=== PATIENT | male | born 1965 | race Native Hawaiian/Other Pacific Islander ===

== ENCOUNTER 2016-11-06 10:20 | Emergency (ER) | payer SELFPAY ==
[2016-11-06 10:22] VITALS: BMI 22.3
[2016-11-06] MEDS ORDERED: Sodium Chloride 0.9% 1,000 ML IV ONE ×3 (10:22→13:58)
[2016-11-06] MEDS ORDERED: Sodium Chloride 0.9% 1,000 ML ONE ×2 (11:24→12:39)
[2016-11-06 11:28] LABS: VENOUS BLOOD GAS BASE EXCESS -3.1 mmol/L (0.0-2.0); VENOUS BLOOD GAS PCO2 35 mmHg (40-60); VENOUS BLOOD PH 7.39 (7.32-7.43)
[2016-11-06 11:34] LABS: BASO # 0.1 K/uL (0.0-0.2); BASO % 0.7 % (0.0-2.0); EOS % 0.3 % (0.0-4.0); HEMATOCRIT 40.2 % (35.0-51.0); LYMPH # 0.5 K/uL (1.0-4.3); LYMPH % 4.5 % (20.0-40.0); MEAN CELL VOLUME 98.2 fL (80.0-94.0); MEAN CORPUSCULAR HEMOGLOBIN 33.4 pg (27.0-31.0); MEAN PLATELET VOLUME 8.9 fL (7.2-11.7); MONO % 8.4 % (0.0-10.0); PLATELET COUNT 239 K/uL (130-400); WHITE BLOOD COUNT 11.7 K/uL (4.8-10.8)
[2016-11-06 11:45] LABS: CHLORIDE 102 mmol/L (98-107); POTASSIUM 3.7 mmol/L (3.6-5.2); SODIUM 140 mmol/L (132-148)
[2016-11-06 11:47] LABS: ALB/GLOB RATIO 1.4 (1.0-2.1); AST/SGOT 22 U/L (17-59); CARBON DIOXIDE 20 mmol/L (22-30); GFR AFRICAN-AMERICAN > 60; TOTAL PROTEIN 7.8 g/dL (6.3-8.3)
[2016-11-06 11:48] LABS: ALCOHOL SERUM < 10 mg/dl (0-10); ALKALINE PHOSPHATASE 61 U/L (38-126); ALT/SGPT 20 U/L (21-72); BLOOD UREA NITROGEN 15 mg/dL (9-20); CALCIUM 9.4 mg/dl (8.6-10.4); GLUCOSE,RANDOM 147 mg/dL (75-110)
[2016-11-06 12:14] LABS: RBC URINE 1 /hpf (0-3); URINE BILIRUBIN NEGATIVE (NEGATIVE); URINE BLOOD NEGATIVE (NEGATIVE); URINE COLOR Yellow (YELLOW); URINE GLUCOSE (UA) NORMAL (Normal); URINE KETONE 1+ mg/dL (NEGATIVE); URINE LEUKOCYTE ESTERASE NEG Leu/uL (Negative); URINE PROTEIN 2+ mg/dL (NEGATIVE); URINE UROBILINOGEN NORMAL mg/dL (0.2-1.0); WBC URINE 2 /hpf (0-5)
[2016-11-06 12:21] LABS: NEUTROPHIL 87 % (50-75); TOTAL CELLS COUNTED 100
--- NOTE | 2016-11-06 12:47 | RAD ---
PROCEDURE: CHEST RADIOGRAPH, 1 VIEW. Portable study 11:05 HISTORY: Detox/Psy COMPARISON: None available. FINDINGS: LUNGS: Clear. PLEURA: No pneumothorax or pleural fluid seen. CARDIOVASCULAR: Normal. OSSEOUS STRUCTURES: No significant abnormalities. VISUALIZED UPPER ABDOMEN: Normal. OTHER FINDINGS: None. IMPRESSION: No active disease. No preliminary report provided by emergency department personnel.
--- NOTE | 2016-11-06 13:45 | C.PDOC ---
History Of Present Illness 51 yr old male brought in via BLS and [employer] in cuffs, brought in for being found in the street with questionable puncture wound or needle in his arm. EMS states the patient evaded them and was running through [place] and jumping over fences and was eventually caught by [employer]. In ED, patient story is unclear, states his then changed it stating she left. Patient is agitated in ED and minimally verbally abusive. ROS is unable to be obtained due to AMS. Time Seen by Provider: 11/06/16 10:22 Chief Complaint (Nursing): Substance Abuse History Per: Patient, EMS, Other ([employer]) History/Exam Limitations: intoxication Onset/Duration Of Symptoms: Days Past Medical History Reviewed: Historical Data, Nursing Documentation, Vital Signs Vital Signs: Last Vital Signs Temp 98.7 F 11/06/16 16:13 Pulse 77 11/06/16 16:13 Resp 18 11/06/16 16:13 BP 125/70 11/06/16 16:13 Pulse Ox 98 11/06/16 16:13 Family History: States: No Known Family Hx - Social History Hx Alcohol Use: No Hx Substance Use: Yes - Immunization History Hx Tetanus Toxoid Vaccination: No Hx Influenza Vaccination: No Hx Pneumococcal Vaccination: No Review Of Systems Review Of Systems: ROS cannot be obtained secondary to pt's inabilty to answer questions. Neurological: Positive for: Altered Mental Status Physical Exam - Physical Exam Appears: Non-toxic, No Acute Distress, Other (No signs of trauma. ) Skin: Warm, Dry, No Rash, Other ((+) Hot. Dry to touch. ) Head: Atraumatic, Normacephalic Oral Mucosa: Moist Chest: Symmetrical, No Tenderness Cardiovascular: Rhythm Regular, No Murmur Respiratory: Normal Breath Sounds, No Rales, No Rhonchi, No Stridor, No Wheezing Gastrointestinal/Abdominal: Normal Exam, Soft, No Tenderness, No Guarding, No Rebound Extremity: Normal ROM, No Swelling Neurological/Psych: Normal Speech, Normal Motor ED Course And Treatment - Laboratory Results Result Diagrams: 11/06/16 11:28 11/06/16 11:28 O2 Sat by Pulse Oximetry: 95 (RA) Pulse Ox Interpretation: Normal - Radiology CXR: Viewed By Me, Read By Radiologist CXR Interpretation: Yes: No Acute Disease Medical Decision Making Medical Decision Making: PLAN: * CXR * EKG * VBG * CBC * CMP * Alcohol Serum * Drug Screen * Acetaminophen * Urinalysis * Ativan IVP * Sodium Chloride IV Patient initially sweaty, hot, dry upon arrival. Lactic Acid was 6. IV fluids given, patient slept , repeat lactic Acid normal, Other labs wnl, Positive for cocaine. Spoke with patient via translation services, denies SI/HI, states he knows how to get home from [facility]. Patient rude and verbally lewd. Patient will be discharged at this time. Disposition Counseled Patient/Family Regarding: Studies Performed, Need For Followup - Disposition Referrals: [facility] [Outside] Disposition: HOME/ ROUTINE Disposition Time: 18:28 Condition: IMPROVED Instructions: Cocaine Abuse (ED) Forms: General Discharge Instructions - POA Present On Arrival: None - Clinical Impression Clinical Impression: Drug abuse
[2016-11-06 14:52] LABS: VENOUS BLOOD GAS PCO2 51 mmHg (40-60)
[2016-11-06 16:14] VITALS: TEMP 98.7
[2016-11-06 19:30] VITALS: BP 134/67; PULSE 74; RESP 19; O2SAT 98
--- NOTE | 2016-11-07 20:57 | CARD ---
APPROVED REPORT EKG Measurement Heart [id number] <Conclusion> Sinus tachycardia Moderate voltage criteria for LVH, may be normal variant Prolonged QT Abnormal ECG
== END 2016-11-06 19:35 | disposition home or self-care (01) ==
LOC: C.ER 10:20 → EDBD 10:20 → C.ER 19:35
DX: F14.10 Cocaine abuse, uncomplicated (principal)
CPT/HCPCS: 71010; 80053; 81001; 82550; 82803; 82948; 85025; 93005; 96361; 96374; 99284; G0480; J2060; J7040